=== PATIENT | male | born 1935 | race Caucasian/White ===

== ENCOUNTER → 2017-11-21 | Outpatient (CLI) | payer MEDICARE, OTHER ==
--- NOTE | 2017-11-21 11:30 | RADIOLOGY REPORT (SQ) ---
EXAM DESCRIPTION: CT ABD/PELVIS COMBO COMPLETED DATE/TIME: 11/21/2017 10:26 am REASON FOR STUDY: K62.89 OTHER SPECIFIED DISEASES OF ANUS AND RECTUM K62.89 OTHER SPECIFIED DISEASE S OF ANUS AND RECTUM COMPARISON: KUB 04/14/2016 CT abdomen pelvis 02/02/2014 TECHNIQUE: CT scan of the abdomen and pelvis performed with and without intravenous contrast, and wi th oral contrast. Contrasted imaging performed helical scanning technique and dynamic intravenous con trast injection. Images reviewed with lung, soft tissue, and bone windows. Reconstructed coronal and sagittal MPR images reviewed. Delayed images for evaluation of the urinary system also acquired. All images stored on PACS. All CT scanners at this facility use dose modulation, iterative reconstruction, and/or weight based d osing when appropriate to reduce radiation dose to as low as reasonably achievable (ALARA). [facility]: Dose Right [facility]: CareDose [facility]: Dose Right [facility]: Teradose 4D [facility]: Simmery CONTRAST TYPE AND DOSE: contrast/concentration: Isovue 300.00 mg/ml; Total Contrast Delivered: 46.0 ml; Total Saline Delivered: 70.0 ml RENAL FUNCTION: Creatinine 1.7 RADIATION DOSE: CT Rad equipment meets quality standard of care and radiation dose reduction techniq ues were employed. CTDIvol: 9.0 - 9.0 mGy. DLP: 1374 mGy-cm. . LIMITATIONS: None. FINDINGS: NON-CONTRASTED IMAGING: A 2 mm right upper pole intrarenal nonobstructive calculus is pres ent. There there are 1 cm left upper pole and 7 mm left upper pole intrarenal nonobstructive stones, measuring 270 Hounsfield units. POST-CONTRASTED IMAGING: LOWER CHEST: No significant findings. No nodules or infiltrates. LIVER: Normal size. No masses. No dilated ducts. 6 mm cyst sub- diaphragmatic surface left lobe cally er SPLEEN: Normal size. No focal lesions. PANCREAS: No masses. No significant calcifications. No adjacent inflammation or peripancreatic fluid collections. Pancreatic duct not dilated. GALLBLADDER: No identified stones by CT criteria. No inflammatory changes to suggest cholecystitis. ADRENAL GLANDS: No significant masses or asymmetry. RIGHT KIDNEY AND URETER: No solid masses. Multiple cysts are present, largest is in the right mid-po le kidney, 2.5 cm in size. 2 mm right upper pole intrarenal nonobstructive stone. No hydronephrosi s or hydroureter. LEFT KIDNEY AND URETER: No solid masses. Multiple left-sided renal cortical cysts, the largest is 4. 5 cm in the left mid pole kidney. 1 cm and 7 mm left upper pole intrarenal nonobstructive calculi. No hydronephrosis or hydroureter. AORTA AND VESSELS: No abdominal aortic aneurysm. Very heavily calcified origins of the visceral angie harini with a least 50% stenosis of the SMA and bilateral renal arteries RETROPERITONEUM: No retroperitoneal adenopathy, hemorrhage or masses. BOWEL AND PERITONEAL CAVITY: No masses or inflammatory changes. No free fluid or peritoneal masses. Patient drank oral contrast. No bowel obstruction. Very heavy burden of diverticuli along the sigmo id colon without CT signs of acute diverticulitis APPENDIX: Normal. PELVIS: No mass. No free fluid. Normal bladder. Surgical clips post prostatectomy. No bulky anal o r rectal mass identified. No perianal inflammation ABDOMINAL WALL: No masses. No hernias. BONES: No significant or acute findings. OTHER: No other significant finding. IMPRESSION: Post prostatectomy. No evidence of from metastatic disease. Bilateral intrarenal nonobstructive kidney stones. Sigmoid diverticuli without CT signs of acute diverticulitis No anal or rectal lesions are identified by CT TECHNICAL DOCUMENTATION: JOB ID: [id number] Quality ID # [id number]: Final reports with documentation of one or more dose reduction techniques (e.g., Au tomated exposure control, adjustment of the mA and/or kV according to patient size, use of iterative reconstruction technique) 2010 [employer]- All Rights Reserved
== END ==
LOC: RAD 08:51
PROVIDERS: ATTEND Surgery
DX: K62.89 Other specified diseases of anus and rectum (principal); N20.0 Calculus of kidney; K57.30 Diverticulosis of large intestine without perforation or abscess without bleeding
CPT/HCPCS: 74178; 82565

== ENCOUNTER 2018-10-03 16:54 | Emergency (ER) | payer MEDICARE, OTHER ==
--- NOTE | 2018-10-03 18:12 | RADIOLOGY REPORT (SQ) ---
EXAM DESCRIPTION: ELBOW RIGHT OVER 2 VIEWS; HAND RIGHT 3 VIEWS COMPLETED DATE/TIME: 10/03/2018 5:58 pm REASON FOR STUDY: fall COMPARISON: None. FINDINGS: Three views right hand: Osteopenic. 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 No carpal malalignment appreciated. No fracture seen. Four views right elbow: Osteopenic. No fracture. IMPRESSION: No right hand or right elbow fracture identified allowing for osteopenia. TECHNICAL DOCUMENTATION: JOB ID: [id number] Reading location - IP/workstation name: [email or web address]
--- NOTE | 2018-10-03 18:12 | RADIOLOGY REPORT (SQ) ---
EXAM DESCRIPTION: ELBOW RIGHT OVER 2 VIEWS; HAND RIGHT 3 VIEWS COMPLETED DATE/TIME: 10/03/2018 5:58 pm REASON FOR STUDY: fall COMPARISON: None. FINDINGS: Three views right hand: Osteopenic. 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 No carpal malalignment appreciated. No fracture seen. Four views right elbow: Osteopenic. No fracture. IMPRESSION: No right hand or right elbow fracture identified allowing for osteopenia. TECHNICAL DOCUMENTATION: JOB ID: [id number] Reading location - IP/workstation name: [email or web address]
--- NOTE | 2018-10-03 18:14 | RADIOLOGY REPORT (SQ) ---
EXAM DESCRIPTION: FOREARM RIGHT COMPLETED DATE/TIME: 10/03/2018 5:58 pm REASON FOR STUDY: fall COMPARISON: None. NUMBER OF VIEWS: Two views right forearm. LIMITATIONS: None. FINDINGS: Osteopenic. No fracture. OTHER: No other significant finding. IMPRESSION: Osteopenic. No fracture. TECHNICAL DOCUMENTATION: JOB ID: [id number] Reading location - IP/workstation name: [email or web address]
--- NOTE | 2018-10-03 18:49 | ER Document Report ---
ED Fall - General Chief Complaint: Fall Injury Stated Complaint: FALL/RIGHT ARM PAIN Time Seen by Provider: 10/03/18 17:30 Mode of Arrival: Ambulatory Information source: Patient, Relative Notes: Patient is a 84-year-old male comes to emergency room complaining of having a sustained mechanical trip and fall in his garage this morning. He states that he fell backwards and hit his elbow on the cement floor of his garage and slapped his right hand on the floor. He got through turkey dinner today and decided he could not take the pain anymore so he came to the emergency room. He has a lot of ecchymosis going on through the dorsal portion of the hand and he is a difficult time making a fist. He denies any other injuries he did not hit his head he had no loss of consciousness. He does state that his elbow has a little bit of an abrasion on it has been bleeding. TRAVEL OUTSIDE OF THE [place] IN LAST 30 DAYS: No - HPI Occurred: This morning Where: Home Context: Tripped, Fell from standing Associated symptoms: denies: Lost consciousness, Dazed/confused, Difficulty breathing, Difficulty walking, Became dizzy/fainted, Blood in stool - 1 Location of injury/pain: Upper extremity Adult Front & Back: 1 - Area of ecchymosis and discomfort pain Quality of pain: Achy, Sharp Severity: Moderate Pain Level: 3 - Related data Allergies/Adverse Reactions: No Known Allergies Allergy (Verified 10/03/18 16:55) Past Medical History - General Information source: Patient, Relative - Social History Smoking Status: Never Smoker Cigarette use (# per day): No Chew tobacco use (# tins/day): No Smoking Education Provided: No Frequency of alcohol use: None Drug Abuse: None Family History: Reviewed & Not Pertinent Patient has suicidal ideation: No Patient has homicidal ideation: No - Past Medical History Cardiac Medical History: Reports: Hx Atrial Fibrillation, Hx Heart Attack - x 1 (8 yrs ago), Hx Hypertension Denies: Hx Coronary Artery Disease Pulmonary Medical History: Reports: Hx Pneumonia Denies: Hx Asthma, Hx Bronchitis, Hx COPD Neurological Medical History: Denies: Hx Cerebrovascular Accident, Hx Seizures - Hx of TIA's Renal/ Medical History: Denies: Hx Peritoneal Dialysis Musculoskeletal Medical History: Denies Hx Arthritis Past Surgical History: Reports: Hx Pacemaker - Immunizations Hx Diphtheria, Pertussis, Tetanus Vaccination: No Review of Systems - Review of Systems Constitutional: No symptoms reported EENT: No symptoms reported Cardiovascular: No symptoms reported Respiratory: No symptoms reported Gastrointestinal: No symptoms reported Genitourinary: No symptoms reported Male Genitourinary: No symptoms reported Musculoskeletal: See HPI, Joint pain, Muscle pain Skin: Change in color Hematologic/Lymphatic: No symptoms reported Neurological/Psychological: No symptoms reported -: Yes All other systems reviewed and negative Physical Exam - Vital signs Vitals: Patient is vital signs had not crossed over in computer yet but the triage sheet reads vital signs as follows temperature 97.3 pulse of 70, blood pressure 148/64, respiratory rate 16 unlabored and saturation 97% on room air. PHYSICAL EXAMINATION: GENERAL: Patient is a well-nourished well-developed 83-year-old male who is awake alert and oriented. He is in no apparent distress at time of physical examination. Although he does appear somewhat uncomfortable. HEAD: Atraumatic, normocephalic. EYES: Pupils equal round and reactive to light, extraocular movements intact, sclera anicteric, conjunctiva are normal. ENT: Nares patent, oropharynx clear without exudates. Moist mucous membranes. NECK: Normal range of motion, supple without lymphadenopathy LUNGS: Breath sounds clear to auscultation bilaterally and equal. No wheezes rales or rhonchi. HEART: Regular rate and rhythm without murmurs Musculoskelatal; examination of patient's area of concern is his right elbow which shows a small skin tear on the elbow itself. Patient has full extension and flexion at the elbow although it is somewhat uncomfortable. Further examination on the forearm shows her to be a large amount of ecchymosis and tenderness to palpation across the tops of the flexor tendons. There is a slight widening at the distal end of the ulna and radius at the wrist. This is where patient has most of his discomfort but it does not look like a deformity. He has good ulnar and radial pulses. He has good cap refill in the nailbeds of the fingers of the right hand. He has decreased loan servicing specialist strength noted that he is nearly 50% of his normal loan servicing specialist strength. He is having difficult time holding a cup or a coffee cup in his hand. There is no deformity of the dorsum of the hand. And again he has good cap refill in the nailbeds of the right hand. Examination of the humerus and shoulder on the right side showed normal range of motion with active range of motion and passive range of motion shows no crepitus or discomfort. NEUROLOGICAL: Normal speech, normal gait. Normal sensory, motor exams PSYCH: Normal mood, normal affect. SKIN: Warm, Dry, normal turgor, no rashes or lesions noted. Course - Re-evaluation Re-evalutation: 10/03/18 18:56 I informed patient that there were no fractures or he has a lot of osteopenia which is is a prelude to the fractures. Surprisingly he did not have one. But he probably has strained the ligaments of the extensor tendons as well as a contusion to the right elbow. I am placing him in splint tonight just for comfort in a sling. Given some pain medication he will follow-up with his primary care first of the week. I have instructed him to ice it down as much as possible for 2 or 3 times a day. I also instructed him that anything changes and come back and have a recheck. Procedures - Immobilization Right Elbow Pre-Proc Neuro Vasc Exam: Normal Immobilizer type: Cock-up Performed by: PCT Post-Proc Neuro Vasc Exam: Normal, Unchanged from pre-exam Alignment checked and good: Yes Discharge - Discharge Clinical Impression: Contusion of right elbow Qualifiers: Encounter type: initial encounter Qualified Code(s): S50.01XA - Contusion of right elbow, initial encounter Contusion of right hand Qualifiers: Encounter type: initial encounter Qualified Code(s): S60.221A - Contusion of right hand, initial encounter Strain of right elbow and forearm Qualifiers: Encounter type: initial encounter Qualified Code(s): S56.911A - Strain of unspecified muscles, fascia and tendons at forearm level, right arm, initial encounter Condition: Stable Disposition: HOME, SELF-CARE Instructions: Contusion ([facility]), Tendon Strain ([facility]) Additional Instructions: Home tonight and rest. Use the splint as directed for the next 2-3 days just for comfort as well as a sling. Ice down 3-4 times a day as we discussed only for a few minutes at a time. If you are still having pain and discomfort after 5 days I would suggest follow-up with your primary care provider and get a referral to orthopedist. Should you have any concerns in the meantime he may always return to ER for Prescriptions: Hydrocodone/Acetaminophen [Blue 5-325 mg Tablet] 1 tab PO Q4 #10 tablet Forms: Elevated Blood Pressure Referrals: NKECHI COX MD [Primary Care Provider] - Follow up as needed
[2018-10-03] MEDS ORDERED: HYDROCODONE/ACETAMINOPHEN 5-325 MG (6 TAB/ER DISP) PO PRN (19:01)
== END 2018-10-03 19:14 | disposition home or self-care (01) ==
LOC: ER 16:54
DX: S51.012A Laceration without foreign body of left elbow, initial encounter (principal); S56.911A Strain of unspecified muscles, fascia and tendons at forearm level, right arm, initial encounter; W01.0XXA Fall on same level from slipping, tripping and stumbling without subsequent striking against object, initial encounter; Y92.008 Other place in unspecified non-institutional (private) residence as the place of occurrence of the external cause; I10 Essential (primary) hypertension
CPT/HCPCS: 99283; 73080; 73090; 73130; L3908; A9270